=== PATIENT | female | born 1995 ===

== ENCOUNTER 2024-03-04 07:05 | Outpatient (CLI) | payer OTHER ==
--- NOTE | 2024-03-05 02:40 | Ultrasound Report ---
PROCEDURE: Abdomen Limited INDICATIONS: Obesity TECHNIQUE: Real-time focused scanning was performed of the abdomen, with image documentation. COMPARISONS: None. FINDINGS: Liver: Liver has a heterogeneous mildly increased echo pattern. Likely mild diffuse hepatic steatosi s. Gallbladder: No gallstones, sludge, wall thickening or pericholecystic edema. Biliary ducts: Intrahepatic bile ducts are non-dilated. Extrahepatic bile duct caliber measures 3 m m. Normal is 6-7 mm or less in diameter, or 10 mm or less post-cholecystectomy. Pancreas: Visualized portions of the pancreas are sonographically normal. Right kidney: Normal in size and echotexture. Right kidney measures 9.0 cm long. No hydronephrosis o r nephrolithiasis. No solid masses. No complex renal cystic lesions which require follow-up. IVC: Intrahepatic inferior vena cava is patent. Miscellaneous: No free abdominal fluid. IMPRESSION: 1. Suggestion of mild diffuse hepatic steatosis. 2. No gallstones, unremarkable gallbladder. Reviewed by: Trey Stephenson MD on 03/05/2024 2:39 AM PDT Approved by: Trey Stephenson MD on 03/05/2024 2:39 AM PDT Station ID: [id number]
== END 2024-03-04 07:06 | disposition home or self-care (01) ==
LOC: DI 07:05
PROVIDERS: ATTEND Internal Medicine
DX: E66.01 Morbid (severe) obesity due to excess calories (principal); G47.9 Sleep disorder, unspecified